=== PATIENT | male | born 1965 | race Caucasian/White ===

== ENCOUNTER 2023-10-15 06:12 | Day surgery (SDC) | payer BC ==
[2023-10-15] MEDS ORDERED: Midazolam 1 MG/ML 2 ML SDV IV ONE (06:13)
[2023-10-15] MEDS ORDERED: Propofol 200 MG/20 ML SDV IV ONE (06:13)
[2023-10-15] MEDS ORDERED: Sodium Chloride 0.9% 10 ML Syringe FLUSH PRN (06:15)
[2023-10-15] MEDS: Lactated Ringers 1,000 ML IV SCH (07:18)
[2023-10-15] MEDS: Simethicone Drops 40 MG/0.6 ML 30 ML Bottle ONE (07:19)
== END 2023-10-15 08:52 | disposition home or self-care (01) ==
LOC: FB.SDS 06:12
PROVIDERS: ATTEND Surgery
DX: K29.50 Unspecified chronic gastritis without bleeding (principal); K20.0 Eosinophilic esophagitis; E11.9 Type 2 diabetes mellitus without complications; Z87.891 Personal history of nicotine dependence; Z79.85 Long-term (current) use of injectable non-insulin antidiabetic drugs; Z79.899 Other long term (current) drug therapy
CPT/HCPCS: 00731; 43239; 82947; 88305; 88342; A9270; J2250; J2704; J7120